=== PATIENT | female | born 1980 | race Caucasian/White ===

== ENCOUNTER 2018-06-01 12:00 | Inpatient (IN) | payer OTHER ==
[~2018-06-01] VITALS: Ht 175.3 cm; Wt 81.6 kg
[2018-06-01 13:19] LABS: BILIRUBIN,URINE NEGATIVE (NEGATIVE); BLOOD, URINE NEGATIVE (NEGATIVE); CLARITY/URINE CLEAR (CLEAR); COLOR,URINE YELLOW (YELLOW); GLUCOSE,URINE NEGATIVE (NEGATIVE); KETONES,URINE NEGATIVE (NEGATIVE); LEUKOCYTE ESTERASE ,URINE TRACE (NEGATIVE); NITRITE, URINE NEGATIVE (NEGATIVE); PH,URINE 6.5 (5.0-8.0); PROTEIN URINE NEGATIVE (NEGATIVE); UROBILINOGEN,URINE 0.2 (0.2-1.0)
[2018-06-01 13:28] LABS: BASOPHILS # (AUTO) 0.1 K/uL (0.0-0.2); BASOPHILS % (AUTO) 0.8 % (0.0-2.0); EOSINOPHILS # (AUTO) 0.1 K/uL (0.0-0.4); EOSINOPHILS % (AUTO) 1.1 % (0.0-4.0); HEMATOCRIT 39.9 % (36-48); HEMOGLOBIN 13.4 g/dL (12.0-16.0); LYMPHOCYTES # (AUTO) 1.4 K/uL (1.0-5.5); LYMPHOCYTES % (AUTO) 14.7 % (20.5-51.5); MEAN CORPUSCULAR HEMOGLOBIN 31 pg (27-31); MEAN CORPUSCULAR HGB CONC 34 % (32-36); MEAN CORPUSCULAR VOLUME 92 fL (79.0-98.0); MONOCYTES # (AUTO) 0.6 K/uL (0.0-1.0); MONOCYTES % (AUTO) 6.6 % (1.7-9.3); NEUTROPHILS # (AUTO) 7.1 K/uL (1.8-7.7); NEUTROPHILS % (AUTO) 76.8 % (40.0-70.0); PLATELET COUNT (AUTO) 230 K/uL (130-430); RED BLOOD CELL COUNT(AUTO) 4.32 MIL/uL (4.2-6.2); RED CELL DISTRIBUTION WIDTH 11.9 % (9.0-15.0); WHITE BLOOD COUNT (AUTO) 9.3 K/uL (4.8-10.8)
[2018-06-02] MEDS ORDERED: NALOXONE HCL 1 MG in NACL 0.9% 1,000 ML IV PRN ×4 (10:01)
[2018-06-02] MEDS ORDERED: LR 1,000 ML IV SCH ×2 (10:01→13:34)
[2018-06-02] MEDS ORDERED: MORPHINE SULFATE 10MG/10ML PF AMP SP SCH (10:15)
[2018-06-02] MEDS ORDERED: DIPHENHYDRAMINE HCL 50 MG CAPSULE PO PRN (10:15)
[2018-06-02] MEDS ORDERED: HYDROmorphone 1 MG INJ. 1 MG/ML AMPUL IVP PRN (10:15)
[2018-06-02] MEDS ORDERED: HYDROmorphone 2 MG/ML VIAL IVP PRN ×2 (10:15)
[2018-06-02] MEDS ORDERED: MEPERIDINE HCL/PF 25 MG/ML DISP.SYRIN IVP PRN ×2 (10:15)
[2018-06-02] MEDS ORDERED: ONDANSETRON HCL 4 MG/2 ML VIAL IVP PRN (10:15)
[2018-06-02] MEDS ORDERED: NALOXONE HCL 0.4 MG/ML AMP (NARCAN) IVP PRN ×3 (10:15)
[2018-06-02] MEDS ORDERED: DIPHENHYDRAMINE INJ 50 MG/ML VIAL IVP PRN (10:15)
[2018-06-02] MEDS ORDERED: CEFAZOLIN 2 GM IVPB PREMIX 50 ML IV ONE (11:15)
[2018-06-02 11:40] VITALS: BP_SYST 113
[2018-06-02] MEDS ORDERED: OXYTOCIN/0.9 % SODIUM CHLORIDE 1,000 ML IV ONE (13:34)
[2018-06-02 13:40] VITALS: BP_SYST 113
[2018-06-02] MEDS ORDERED: OXYTOCIN/0.9 % SODIUM CHLORIDE 20 UNITS/1,000 ML BAG IV ONE (13:40)
[2018-06-02] MEDS ORDERED: MORPHINE SULFATE 10MG/10ML PF AMP ONE (13:40)
[2018-06-02] MEDS ORDERED: OXYTOCIN 10 UNIT/ML VIAL ONE (13:40)
[2018-06-02] MEDS ORDERED: NS 1000 ML IV.SOLN IV ONE (13:40)
[2018-06-02] MEDS ORDERED: LR 1,000 ML IV.SOLN IV ONE (13:40)
[2018-06-02] MEDS ORDERED: ONDANSETRON HCL 4 MG/2 ML VIAL ONE (13:40)
[2018-06-02] MEDS ORDERED: BUPIVACAINE /DEX PF 0.75% SPINAL 2 ML AMP INJ ONE (13:40)
[2018-06-02] MEDS ORDERED: OXYCODONE/ACETAMINOPHEN 5-325 TABLET PO PRN (13:45)
[2018-06-02] MEDS ORDERED: BISACODYL 10 MG/SUPPOSITORY RC PRN (13:45)
[2018-06-02] MEDS ORDERED: DIPH-TET-PERTUS Vaccine 0.5 ML VIAL (ADACEL) I.M. PRN (13:45)
[2018-06-02] MEDS ORDERED: RHO(D) IMMUNE GLOBULIN/MALTOSE 1500 UNITS/1.3 ML (WINHRO) IM PRN (13:45)
[2018-06-02] MEDS ORDERED: ANUSOL 1 EA SUPP.RECT (PREPARATION H) RC PRN (13:45)
[2018-06-02] MEDS ORDERED: MEASLES,MUMPS&RUBELLA VACC/PF 12500 UNIT/0.5 ML VIAL SUBQ PRN (13:45)
[2018-06-02] MEDS ORDERED: LANOLIN 7 GM OINT. TP PRN (13:45)
[2018-06-02] MEDS ORDERED: SENNOSIDES/DOCUSATE SODIUM 1 TAB TABLET(SENOKOT-S) PO PRN (13:45)
[2018-06-02] MEDS ORDERED: SIMETHICONE 80 MG TAB.CHEW PO PRN (13:45)
[2018-06-02] MEDS: IBUPROFEN 600 MG TABLET PO SCH (18:00)
[2018-06-02] MEDS ORDERED: TEMAZEPAM 15 MG CAPSULE PO PRN (21:00)
[2018-06-02] MEDS: OXYCODONE/ACETAMINOPHEN 5-325 TABLET PO PRN (21:29)
[2018-06-03] MEDS: IBUPROFEN 600 MG TABLET PO SCH ×4 (06:30→17:09)
[2018-06-03 07:02] LABS: BASOPHILS % (AUTO) 0.1 % (0.0-2.0); EOSINOPHILS # (AUTO) 0.1 K/uL (0.0-0.4); EOSINOPHILS % (AUTO) 0.6 % (0.0-4.0); HEMATOCRIT 28.4 % (36-48); HEMOGLOBIN 9.8 g/dL (12.0-16.0); LYMPHOCYTES # (AUTO) 1.6 K/uL (1.0-5.5); LYMPHOCYTES % (AUTO) 13.7 % (20.5-51.5); MEAN CORPUSCULAR HEMOGLOBIN 32 pg (27-31); MEAN CORPUSCULAR HGB CONC 35 % (32-36); MEAN CORPUSCULAR VOLUME 93 fL (79.0-98.0); MONOCYTES # (AUTO) 0.8 K/uL (0.0-1.0); NEUTROPHILS # (AUTO) 9.5 K/uL (1.8-7.7); NEUTROPHILS % (AUTO) 78.6 % (40.0-70.0); PLATELET COUNT (AUTO) 168 K/uL (130-430); RED BLOOD CELL COUNT(AUTO) 3.05 MIL/uL (4.2-6.2); RED CELL DISTRIBUTION WIDTH 12.1 % (9.0-15.0)
[2018-06-03] MEDS: DOCUSATE SODIUM 100 MG CAPSULE PO PRN (12:19)
[2018-06-03] MEDS: OXYCODONE/ACETAMINOPHEN 5-325 TABLET PO PRN (17:09)
[2018-06-04] MEDS: DOCUSATE SODIUM 100 MG CAPSULE PO PRN
[2018-06-04] MEDS: IBUPROFEN 600 MG TABLET PO SCH ×2 (06:00)
[2018-06-04] MEDS: OXYCODONE/ACETAMINOPHEN 5-325 TABLET PO PRN (09:05)
== END 2018-06-04 12:35 | disposition home or self-care (01) | DRG 766 ==
LOC: SPU 06-02 09:37
PROVIDERS: ADMIT Obstetrics & Gynecology; ATTEND Obstetrics & Gynecology
PROC: 10D00Z1 Extraction of Products of Conception, Low, Open Approach (ICD-10-PCS; principal; 2018-06-02 12:00)
DX: O32.1XX0 Maternal care for breech presentation, not applicable or unspecified (principal); Z37.0 Single live birth; Z3A.39 39 weeks gestation of pregnancy
CPT/HCPCS: 36415; 81003; 85025; 86592; 86886; 86900; 86901; 94760; J0690; J2274; J2405; J2590; J3490; J7030; J7120